=== PATIENT | male | born 1995 | race African-American/Black ===

== ENCOUNTER 2016-11-23 09:25 | Observation (INO) | payer BC ==
--- NOTE | ~2016-11-23 | DS ---
Discharge Summary [facility] [address] [place]. [address] NAME: ALPA VALIENTE JR : 95 STATUS : DIS [place] PAT#: [id number] AGE: 21 ADM/REG DATE : 11/23/16 MR#: [id number] REPORT SERV DATE: 11/25/16 DICTATED BY: FREDY CASTILLO II DATE: 11/24/16 REPORT STATUS : Draft TRANSCRIBED BY: KANIKA DATE: 11/24/16 ADMISSION DATE: 11/23/2016 DISCHARGE DATE: 11/24/2016 DISCHARGE DIAGNOSES: 1. Uncontrolled diabetes mellitus type 1 with hyperglycemia. 2. Nausea and vomiting secondary to the above. 3. Hypokalemia. 4. Dehydration. BRIEF HISTORY OF PRESENT ILLNESS: The patient is a 21-year-old male with the above history, who presented to [facility] due to worsening nausea and vomiting in the setting of hyperglycemia, type 1 diabetes with likely impending DKA. For detailed history and physical examination, please see my note from 11/23/2016. HOSPITAL COURSE: On admission, the patient's bicarbonate was only 23 with 20 ketones in his urine, but negative acetone. The patient's blood sugar was around 320 on admission and his creatinine mildly elevated at 1.25. There was no evidence of infection and the patient was given aggressive IV fluid hydration and insulin. His symptoms of nausea and vomiting quickly resolved, and he was able to resume his normal diet. The patient notes his blood sugar has been fairly wildly uncontrolled with blood sugars in the 300s to 500s. His A1c was 15. He admits to accidentally skipping doses of his insulin. The patient has been counseled in the hospital about being compliant with his regimen and diet and has verbalized understanding. Given it is the weekend, there was no informatics educator on, so we will try and arrange some outpatient diabetes education and the patient will follow with his PCP, Dr. Rock. DISCHARGE MEDICATIONS: 1. Lantus 40 units subcutaneously q.h.s. 2. Lispro t.i.d. a.c. per correction scale. DISCHARGE INSTRUCTIONS: The patient will follow up with Dr. Lynn Rock this week. FELIZ/KANIKA Fredy Castillo II, MD / [id number] CC: MD LESLIE Dee II, WINIFRED
--- NOTE | ~2016-11-23 | HP ---
History And Physical [place] [address] [facility] [place]. [address] NAME: ALPA VALIENTE JR : 95 STATUS : ADM [place] PAT#: [id number] AGE: 21 ADM/REG DATE : 11/23/16 MR#: [id number] REPORT SERV DATE: 11/23/16 DICTATED BY: FREDY PACE II DATE: 11/23/16 REPORT STATUS : Draft TRANSCRIBED BY: MODL DATE: 11/23/16 DATE OF ADMISSION: 11/23/2016 CHIEF COMPLAINT: Nausea and vomiting. HISTORY OF PRESENT ILLNESS: The patient is a 21-year-old male with a history of uncontrolled diabetes mellitus type 1, who presented to [facility] due to nausea for the past few days, now having vomiting today. He was found to be hyperglycemic with a blood sugar of 324. CO2 only mildly low at 23 and acetone negative. ER requesting admission for treatment of concern for possible impending DKA. Otherwise, the patient denies any fevers, chills, shortness of breath, chest pain, or dysuria. Denies any diarrhea or abdominal pain. REVIEW OF SYSTEMS: A 10-point review of systems is otherwise negative except for HPI. PAST MEDICAL HISTORY: Diabetes mellitus type 1, previously uncontrolled, reported recent A1c of 11. PAST SURGICAL HISTORY: None. SOCIAL HISTORY: The patient denies any tobacco use, but does smoke marijuana. Denies any significant alcohol or other drug use. FAMILY HISTORY: Type 1 diabetics in a few uncles and cousins. Father has COPD. HOME MEDICATIONS: Lantus 40 units subcu q.h.s. and NovoLog per sliding scale. PHYSICAL EXAMINATION: VITAL SIGNS: Blood pressure 140/89, temperature 97.3, pulse 89, respirations 14, and O2 saturation 100% on room air. GENERAL: The patient is alert and oriented x3, in no acute distress. NECK: Supple. Nontender. No lymphadenopathy or thyromegaly. HEENT: Moist mucous membranes. Pupils are equal, round, and reactive to light. Conjunctive clear. RESPIRATORY: Lungs are clear to auscultation bilaterally. No wheezes, rhonchi, or rales. Nonlabored breathing. CARDIOVASCULAR: Regular rate and rhythm. No murmurs, rubs, or gallops. ABDOMEN: Soft, nontender, nondistended. Normoactive bowel sounds. EXTREMITIES: No cyanosis, clubbing, or edema. SKIN: No lesions, rashes, or wounds. NEUROLOGIC: No focal deficits. LABORATORY DATA: WBC 7.6, hemoglobin 14.9, platelets 190. Sodium 138, potassium 4.4, chloride 105, CO2 of 23, BUN 9, creatinine 1.25, glucose 324. Total protein 9.6, albumin 4.4, globulin 5.2, lipase 87. Acetone negative. LFTs normal. History And Physical [address] [address] NAME: ALPA VALIENTE JR : 95 STATUS : ADM [place] PAT#: [id number] AGE: 21 ADM/REG DATE : 11/23/16 MR#: [id number] REPORT SERV DATE: 11/23/16 DICTATED BY: FREDY PACE II DATE: 11/23/16 REPORT STATUS : Draft TRANSCRIBED BY: KANIKA DATE: 11/23/16 Urine drug screen: Positive for marijuana. Urinalysis: Unremarkable. ASSESSMENT AND PLAN: The patient is a 21-year-old male with uncontrolled diabetes mellitus type 1 with hyperglycemia and concern for impending diabetic ketoacidosis. Acetone negative. He had 20 ketones on his UA, so we will treat with aggressive IV fluid hydration and give him a dose of IV insulin and start subcu NovoLog and Levemir. We will recheck labs in four hours and reassess if the patient needs to go on a drip or not. We will check A1c and provide supportive care. The patient is full code. FELIZ/KANIKA Fredy Pace II, MD / [id number] CC: Fredy Pace II, MD
[~2016-11-23 09:25] MED LIST: HUMALOG SC; LANTUS SC
[2016-11-23 10:32] LABS: ASCORBIC ACID (UR NOT ORDER) NEG (NEG); BILIRUBIN, URINE NEGATIVE (NEG); ER URINALYSIS TAT 0 Hrs 08 Mins; KETONE, URINE 20 MG/DL (NEG); LEUKOCYTE ESTERASE(NOT OR NEG (NEG); NITRITE (URINE) NEG (NEG); WBC (NOT ORDERED) (RFLEX) 1 (0-5)
[2016-11-23 10:54] LABS: AMPHETAMINES (NOT ORD) NEG (NEG); BARBITURATES (NOT ORDERED NEG (NEG); BENZODIAZEPINES (NOT ORD) NEG (NEG); CANNABINOIDS (THC) POS (NEG); COCAINE (NOT ORDERED) NEG (NEG); OPIATES NEG (NEG); PHENCYCLIDINE(PCP) NEG (NEG); TRICYCLICS NEG (NEG)
[2016-11-23 11:12] LABS: BASOPHILS 0.3 %; BASOPHILS ABSOLUTE 0.02 10/3/uL (0.0-0.16); EOSINOPHILS 0.1 %; EOSINOPHILS ABSOLUTE 0.01 10/3/uL (0.0-0.53); HEMATOCRIT 42.9 % (40.0-51.0); HEMOGLOBIN 14.9 g/dL (13.6-17.8); IMMATURE GRANULOCYTES 0.1 %; IMMATURE GRANULOCYTES ABSOLUTE 0.01 10/3/uL (0.0-0.11); LYMPHOCYTES 15.6 %; LYMPHOCYTES ABSOLUTE 1.18 10/3/uL (0.67-4.30); MEAN CORPUS HGB CONC 34.7 g/dL (32.0-36.0); MEAN CORPUSCULAR HEMOGLOB 28.8 pg (26.0-34.0); MEAN CORPUSCULAR VOLUME 82.8 fL (80-100); MEAN PLATELET VOLUME 10.1 fL (9.2-13.0); MONOCYTES 4.4 %; MONOCYTES ABSOLUTE 0.33 10/3/uL (0.21-1.20); NEUTROPHILS 79.5 %; NEUTROPHILS ABSOLUTE 6.01 10/3/uL (2.02-8.40); PLATELET COUNT 190 10/3/uL (150-400); RBC DISTRIBUTION WIDTH 12.7 % (12.0-16.0); RED CELL COUNT 5.18 10/6/uL (4.7-6.1); WHITE BLOOD CELLS 7.6 10/3/uL (4.5-10.5)
[2016-11-23 11:15] LABS: MANUAL DIFF NO %
[2016-11-23 11:26] LABS: A/G RATIO 0.8 (0.7-1.9); ALBUMIN 4.4 G/DL (3.5-5.0); BUN (BLOOD UREA NITROGEN) 9 MG/DL (6-23); CHLORIDE, SERUM 105 MMOL/L (96-112); CO2 (CARBON DIOXIDE) 23 MMOL/L (24-34); CREATININE 1.25 MG/DL (0.70-1.30); GFR AFRICAN AMERICAN 95 ML/MIN (>=60); GFR NON AFRICAN AMERICAN 82 ML/MIN (>=60); GLOBULIN 5.2 G/DL (2.5-4.1); SGPT(ALT) 22 U/L (5-65); SODIUM, SERUM 138 MMOL/L (135-148); TOTAL BILIRUBIN 0.6 MG/DL (0-1.2); TOTAL PROTEIN 9.6 G/DL (6.0-8.5)
[2016-11-23 11:27] LABS: ALKALINE PHOSPHATASE 112 U/L (45-117); CALCIUM, SERUM 9.7 MG/DL (8.5-10.4); GLUCOSE, SERUM 324 MG/DL (60-99); POTASSIUM, SERUM 4.4 MMOL/L (3.5-5.3); SGOT(AST) 25 U/L (5-40)
[2016-11-23 11:30] LABS: ACETONE NEG
[2016-11-23] MEDS ORDERED: LANTUS SC (11:49)
[2016-11-23] MEDS ORDERED: HUMALOG SC (11:49)
[2016-11-23 13:47] LABS: BE (BASE EXCESS) -4.1 MEQ/L (0 +/- 2.5); CARBOXYHEMOGLOBIN 1.7 % (0-3); HCO3 (ACTUAL BICARBONATE) 19.1 MEQ/L (23-27); HEMOBLOGIN CONTENT 16.1 G/DL (14-18); INSTRUMENT SERIAL # 8087; METHEMOGLOBIN 0.5 % (0-3); PCO2 (CO2 TENSION) 31 MMHG (35-45); PO2 (O2 TENSION) 24 MMHG (79-93); SAMPLE Venous; pH 7.41 (7.37-7.43)
[2016-11-23 14:16] LABS: BUN (BLOOD UREA NITROGEN) 10 MG/DL (6-23); CHLORIDE, SERUM 110 MMOL/L (96-112); CO2 (CARBON DIOXIDE) 25 MMOL/L (24-34); GFR AFRICAN AMERICAN 111 ML/MIN (>=60); GFR NON AFRICAN AMERICAN 95 ML/MIN (>=60); GLOBULIN 4.2 G/DL (2.5-4.1); SGOT(AST) 9 U/L (5-40); SGPT(ALT) 18 U/L (5-65); SODIUM, SERUM 142 MMOL/L (135-148); TOTAL BILIRUBIN 0.6 MG/DL (0-1.2); TOTAL PROTEIN 8.2 G/DL (6.0-8.5)
[2016-11-23 14:24] LABS: ALKALINE PHOSPHATASE 91 U/L (45-117); GLUCOSE, SERUM 232 MG/DL (60-99); POTASSIUM, SERUM 3.3 MMOL/L (3.5-5.3)
[2016-11-23 15:40] LABS: BUN (BLOOD UREA NITROGEN) 9 MG/DL (6-23); CALCIUM, SERUM 8.7 MG/DL (8.5-10.4); CHLORIDE, SERUM 110 MMOL/L (96-112); CO2 (CARBON DIOXIDE) 24 MMOL/L (24-34); CREATININE 1.08 MG/DL (0.70-1.30); GFR AFRICAN AMERICAN 113 ML/MIN (>=60); GFR NON AFRICAN AMERICAN 98 ML/MIN (>=60); GLUCOSE, SERUM 193 MG/DL (60-99); POTASSIUM, SERUM 3.4 MMOL/L (3.5-5.3); SODIUM, SERUM 142 MMOL/L (135-148)
[2016-11-24 08:00] LABS: BUN (BLOOD UREA NITROGEN) 9 MG/DL (6-23); CALCIUM, SERUM 7.8 MG/DL (8.5-10.4); CHLORIDE, SERUM 113 MMOL/L (96-112); CO2 (CARBON DIOXIDE) 23 MMOL/L (24-34); CREATININE 0.95 MG/DL (0.70-1.30); GFR AFRICAN AMERICAN 132 ML/MIN (>=60); GFR NON AFRICAN AMERICAN 114 ML/MIN (>=60); POTASSIUM, SERUM 3.1 MMOL/L (3.5-5.3); SODIUM, SERUM 144 MMOL/L (135-148)
[2016-11-24 08:02] LABS: GLUCOSE, SERUM 53 MG/DL (60-99)
[2016-11-25] MEDS ORDERED: ADVIL PO (08:23)
[2017-03-13] MEDS ORDERED: HUMALOGPEN SC (17:29)
[2017-03-13] MEDS ORDERED: LANTUSCART SC (17:29)
[2017-03-13] MEDS ORDERED: ADVIL PO (17:31)
[2017-03-17] MEDS ORDERED: LANTUS SC (08:42)
[2017-03-17] MEDS ORDERED: HUMALOG SC (08:42)
[2017-03-19] MEDS ORDERED: HUMALOGPEN SQ (10:23)
== END 2016-11-24 16:07 | disposition home or self-care (01) ==
LOC: ER 09:25 → CDU1 12:18
PROVIDERS: Emergency Medicine; Internal Medicine
DX: E10.65 Type 1 diabetes mellitus with hyperglycemia (principal); R11.2 Nausea with vomiting, unspecified; E87.6 Hypokalemia; E86.0 Dehydration; Z83.3 Family history of diabetes mellitus; Z82.5 Family history of asthma and other chronic lower respiratory diseases; Z79.899 Other long term (current) drug therapy; Z79.4 Long term (current) use of insulin
CPT/HCPCS: 80048; 80053; 80305; 81001; 82009; 82805; 82962; 83036; 83690; 85025; 96372; 96374; 96375; 96376; 99284; A9270-GY; G0378; J1170; J2405; J2550

== ENCOUNTER 2016-11-25 07:20 | Inpatient (IN) | payer BC ==
--- NOTE | ~2016-11-25 | DS ---
Discharge Summary [facility] [address] [place]. [address] NAME: ALPA VALIENTE JR : 95 STATUS : DIS Pon[place] PAT#: [id number] AGE: 21 ADM/REG DATE : 11/25/16 MR#: [id number] REPORT SERV DATE: 11/28/16 DICTATED BY: JR. ROSAS WILLIAM JOHN DATE: 11/27/16 REPORT STATUS : Draft TRANSCRIBED BY: KANIKA DATE: 11/27/16 ADMISSION DATE: 11/25/2016 DISCHARGE DATE: 11/27/2016 DISCHARGE DIAGNOSES: 1. Abdominal pain - resolved. 2. Diabetes mellitus type 1 with a hemoglobin A1c of 15 and impending diabetic ketoacidosis. 3. Hypokalemia. OPERATIONS/PROCEDURES AND TREATMENTS: None. DISCHARGE MEDICATIONS: Include Lantus insulin 40 units at bedtime, premeal Humalog 8 units before meals holding for finger blood sugar less than 100, and NovoLog sliding scale level 2. HOSPITAL COURSE: The patient was a 21-year-old male, just discharged on 11/24/2016 who returned to the hospital on 11/25/2016 with abdominal pain, nausea, vomiting. Lab analysis showed the patient had a blood sugar of 340 with low bicarbonate at 23, although his anion gap was only 11. The patient's exam was otherwise unremarkable. The patient was admitted to the Clinical Decision Unit. He was placed on an insulin drip and IV fluid. The patient quickly normalized. He was transitioned to a basal premeal bolus regimen on hospital day #2 and is discharged on hospital day #3 on the above diabetic regimen. He did receive diabetic education as far as extensive counseling from mi, perinatal educator, case management. The patient understands and voices willingness to participate. As to his hypokalemia, this was replaced per protocol. The patient will be discharged home today 11/27/2016 in good condition. We will follow up with his primary care provider, Sheba Rock. For discharge exam and laboratory, please see daily progress note. DISCHARGE DIET: ADA. ACTIVITY: As tolerated. FOLLOWUP ISSUES: Recommend refining the diabetic regimen and routine diabetic care. SARAH/KANIKA Emmett Rosas Jr, MD Discharge Summary [place] [address] [place] [address] NAME: ALPA VALIENTE : 95 STATUS : DIS Pon[place] PAT#: [id number] AGE: 21 ADM/REG DATE : 11/25/16 MR#: [id number] REPORT SERV DATE: 11/28/16 DICTATED BY: JR. ROSAS WILLIAM JOHN DATE: 11/27/16 REPORT STATUS : Draft TRANSCRIBED BY: KANIKA DATE: 11/27/16 / [id number] CC: Emmett Rosas Jr, MD Winifred Dunbar-Davies
--- NOTE | ~2016-11-25 | HP ---
History And Physical [place] [id number] [facility] [place]. [address] NAME: ALPA VALIENTE JR : 95 STATUS : ADM [place] PAT#: [id number] AGE: 21 ADM/REG DATE : 11/25/16 MR#: [id number] REPORT SERV DATE: 11/25/16 DICTATED BY: CONNOR MERLOS DATE: 11/25/16 REPORT STATUS : Draft TRANSCRIBED BY: MODL DATE: 11/25/16 DATE OF ADMISSION: 11/25/2016 ATTENDING PHYSICIAN: Emmett Rosas Jr, MD. EXAMINING PHYSICIAN: Connor Merlos M.D. REASON FOR ADMISSION: Intractable nausea, vomiting, type 1 diabetes, impending DKA. HISTORY: A 21-year-old male, who was just discharged on 11/24/2016, by Dr. Pace. Has had uncontrolled diabetes type 1, his hemoglobin A1c was 15. He claims he is not out of insulin; however, he responded very quickly to insulin during the prior hospitalization and resolution of nausea and vomiting. His CO2 was 23 as it is now. His serum ketones were negative. His urinalysis has not been obtained. PAST MEDICAL HISTORY: Diabetes type 1, has started at age 13. His family physician is Dr. Burt Rock. He complains mostly of abdominal pain in the epigastrium with vomiting. The patient is in extremis of vomiting at this time. SOCIAL HISTORY: He is not . Lives at home with his mother and father. He does smoke marijuana, he indicates this is daily. No alcohol or other drug use. No narcotics. FAMILY HISTORY: Diabetes type 1. Father has COPD. HOME MEDICATIONS: Lantus 40 units subcu daily; NovoLog by sliding scale; and ibuprofen for pain. REVIEW OF SYSTEMS: Mostly abdominal pain, epigastric pain, wants pain medicine. He is shaking his legs with pain. Somewhat uncooperative with history. The remainder of the review of systems answered by grunting is negative. PHYSICAL EXAMINATION: VITAL SIGNS: His heart rate is 80, respiratory rate 22, and his initial blood pressure is 122/70. GENERAL: male in obvious distress. HEENT: EOMI. Sclerae clear. Conjunctivae pink and uncooperative with the examination. NECK: No bruit without any JVD. CHEST: Clear to A and P. HEART: Regular S1, S2 without murmur, gallop, or click. ABDOMEN: Soft. There is no point tenderness. Bowel sounds are slow. EXTREMITIES: Showed no edema. Distal pulses intact, dorsalis pedis and posterior tibial. NEUROLOGIC: Tongue is dry. History And Physical [address] [address] NAME: ALPA VALIENTE JR : 95 STATUS : ADM [place] PAT#: [id number] AGE: 21 ADM/REG DATE : 11/25/16 MR#: [id number] REPORT SERV DATE: 11/25/16 DICTATED BY: CONNOR MERLOS DATE: 11/25/16 REPORT STATUS : Draft TRANSCRIBED BY: KANIKA DATE: 11/25/16 LABORATORY DATA: His carbon dioxide was 32. Sodium 137, potassium 3.8, chloride is 103, creatinine 1.22, BUN 10, calcium 9.5, his globulin was 4.4. Liver tests normal. Serum acetone negative. His white count was 6.1, hemoglobin 14.8, hematocrit 41.9, and platelets 223,000. ASSESSMENT: 1. Abdominal pain, epigastric. We will check lipase and amylase on blood in the lab. 2. Diabetes type 1 since age 13. 3. Impending diabetic ketoacidosis. Mild decrease in the PaCO2. Ketones are negative in the serum. We will check urine. No urinalysis has been obtained yet for vomiting. Check lipase and amylase as well. PLAN: I am going to treat his diabetic ketoacidosis as he did have a very good response over the weekend. We will start IV insulin drip as he is having vomiting now and convert to D5 half-normal saline once the blood sugar is less than 180. Rapidly convert to p.o. and subcu if he responds rapidly this weekend and check lipase and amylase. Also the diabetes education will see the patient regarding risk for repeat DKA. He claims that he is not out of insulin. He has no fever or chills. No signs or source of infection, and he has been eating adequately at that time. He began having abdominal pain around 2 a.m. this morning. MADDIE/KANIKA Connor Merlos M.D. / [id number] CC: Emmett Rosas Jr, MD James E Gilbert II, MD
[2016-11-25 07:04] LABS: BASOPHILS 0.3 %; BASOPHILS ABSOLUTE 0.02 10/3/uL (0.0-0.16); EOSINOPHILS 0.8 %; EOSINOPHILS ABSOLUTE 0.05 10/3/uL (0.0-0.53); HEMATOCRIT 41.9 % (40.0-51.0); HEMOGLOBIN 14.8 g/dL (13.6-17.8); LYMPHOCYTES 34.3 %; LYMPHOCYTES ABSOLUTE 2.08 10/3/uL (0.67-4.30); MEAN CORPUS HGB CONC 35.3 g/dL (32.0-36.0); MEAN PLATELET VOLUME 10.7 fL (9.2-13.0); MONOCYTES 7.4 %; MONOCYTES ABSOLUTE 0.45 10/3/uL (0.21-1.20); NEUTROPHILS 57.2 %; NEUTROPHILS ABSOLUTE 3.47 10/3/uL (2.02-8.40); PLATELET COUNT 223 10/3/uL (150-400); RBC DISTRIBUTION WIDTH 12.8 % (12.0-16.0); RED CELL COUNT 5.11 10/6/uL (4.7-6.1); WHITE BLOOD CELLS 6.1 10/3/uL (4.5-10.5)
[2016-11-25 07:05] LABS: MANUAL DIFF NO %
[2016-11-25 07:19] LABS: A/G RATIO 0.9 (0.7-1.9); ALKALINE PHOSPHATASE 84 U/L (45-117); BUN (BLOOD UREA NITROGEN) 10 MG/DL (6-23); CALCIUM, SERUM 9.5 MG/DL (8.5-10.4); CHLORIDE, SERUM 103 MMOL/L (96-112); CO2 (CARBON DIOXIDE) 23 MMOL/L (24-34); CREATININE 1.22 MG/DL (0.70-1.30); GFR AFRICAN AMERICAN 98 ML/MIN (>=60); GFR NON AFRICAN AMERICAN 84 ML/MIN (>=60); GLOBULIN 4.4 G/DL (2.5-4.1); GLUCOSE, SERUM 340 MG/DL (60-99); SGPT(ALT) 21 U/L (5-65); SODIUM, SERUM 137 MMOL/L (135-148); TOTAL BILIRUBIN 0.5 MG/DL (0-1.2); TOTAL PROTEIN 8.4 G/DL (6.0-8.5)
[2016-11-25 07:20] LABS: POTASSIUM, SERUM 3.8 MMOL/L (3.5-5.3); SGOT(AST) 28 U/L (5-40)
[2016-11-25 07:34] LABS: ACETONE NEG
[2016-11-25] MEDS ORDERED: ADVIL PO (08:23)
[2016-11-25 10:24] LABS: PHOSPHORUS, SERUM 1.4 MG/DL (2.5-4.5)
[2016-11-25 14:52] LABS: BUN (BLOOD UREA NITROGEN) 9 MG/DL (6-23); CALCIUM, SERUM 9.2 MG/DL (8.5-10.4); CHLORIDE, SERUM 105 MMOL/L (96-112); CO2 (CARBON DIOXIDE) 23 MMOL/L (24-34); CREATININE 0.96 MG/DL (0.70-1.30); GFR AFRICAN AMERICAN 130 ML/MIN (>=60); GFR NON AFRICAN AMERICAN 113 ML/MIN (>=60); POTASSIUM, SERUM 3.2 MMOL/L (3.5-5.3); SODIUM, SERUM 139 MMOL/L (135-148)
[2016-11-25 14:53] LABS: GLUCOSE, SERUM 180 MG/DL (60-99)
[2016-11-27 04:13] LABS: BUN (BLOOD UREA NITROGEN) 8 MG/DL (6-23); CALCIUM, SERUM 8.6 MG/DL (8.5-10.4); CHLORIDE, SERUM 101 MMOL/L (96-112); CO2 (CARBON DIOXIDE) 27 MMOL/L (24-34); CREATININE 1.02 MG/DL (0.70-1.30); GFR AFRICAN AMERICAN 121 ML/MIN (>=60); GFR NON AFRICAN AMERICAN 105 ML/MIN (>=60); GLUCOSE, SERUM 118 MG/DL (60-99); SODIUM, SERUM 137 MMOL/L (135-148)
[2016-11-27] MEDS ORDERED: HUMALOGPEN SC (09:02)
[2016-11-27] MEDS ORDERED: HUMALOG SC (09:03)
[2017-03-13] MEDS ORDERED: LANTUSCART SC (17:29)
[2017-03-13] MEDS ORDERED: HUMALOGPEN SC (17:29)
[2017-03-13] MEDS ORDERED: ADVIL PO (17:31)
[2017-03-17] MEDS ORDERED: HUMALOG SC (08:42)
[2017-03-17] MEDS ORDERED: LANTUS SC (08:42)
[2017-03-19] MEDS ORDERED: HUMALOGPEN SQ (10:23)
== END 2016-11-27 09:30 | disposition home or self-care (01) | DRG 639 ==
LOC: ER 07:20 → CDU1 08:02
PROVIDERS: Emergency Medicine; Internal Medicine
DX: E10.65 Type 1 diabetes mellitus with hyperglycemia (principal); E86.0 Dehydration; E87.6 Hypokalemia; R10.13 Epigastric pain; R11.2 Nausea with vomiting, unspecified; Z83.3 Family history of diabetes mellitus; Z79.4 Long term (current) use of insulin; Z82.5 Family history of asthma and other chronic lower respiratory diseases; Z79.899 Other long term (current) drug therapy
CPT/HCPCS: 80048; 80053; 80305; 81001; 82009; 82150; 82805; 82962; 83036; 83690; 83735; 84100; 84132; 85025; 96365; 96366; 96372; 96374; 96375; 96376; 99284; 99285; A9270-GY; C9113; G0378; J1170; J2405; J2550

== ENCOUNTER 2016-12-31 17:00 | Emergency (ER) | payer BC ==
[2016-12-31 12:41] LABS: BASOPHILS 0.4 %; BASOPHILS ABSOLUTE 0.03 10/3/uL (0.0-0.16); EOSINOPHILS 0 %; HEMOGLOBIN 14.9 g/dL (13.6-17.8); IMMATURE GRANULOCYTES 0.1 %; IMMATURE GRANULOCYTES ABSOLUTE 0.01 10/3/uL (0.0-0.11); LYMPHOCYTES ABSOLUTE 1.26 10/3/uL (0.67-4.30); MEAN CORPUS HGB CONC 35.5 g/dL (32.0-36.0); MEAN CORPUSCULAR HEMOGLOB 28.9 pg (26.0-34.0); MEAN CORPUSCULAR VOLUME 81.6 fL (80-100); MEAN PLATELET VOLUME 9.9 fL (9.2-13.0); MONOCYTES 2.8 %; MONOCYTES ABSOLUTE 0.21 10/3/uL (0.21-1.20); NEUTROPHILS 79.7 %; NEUTROPHILS ABSOLUTE 5.92 10/3/uL (2.02-8.40); PLATELET COUNT 250 10/3/uL (150-400); RBC DISTRIBUTION WIDTH 12.5 % (12.0-16.0); RED CELL COUNT 5.15 10/6/uL (4.7-6.1); WHITE BLOOD CELLS 7.4 10/3/uL (4.5-10.5)
[2016-12-31 12:42] LABS: MANUAL DIFF NO %
[2016-12-31 13:00] LABS: A/G RATIO 0.9 (0.7-1.9); ALBUMIN 4.2 G/DL (3.5-5.0); ALKALINE PHOSPHATASE 94 U/L (45-117); CHLORIDE, SERUM 99 MMOL/L (96-112); GFR AFRICAN AMERICAN 124 ML/MIN (>=60); GFR NON AFRICAN AMERICAN 107 ML/MIN (>=60); GLOBULIN 4.7 G/DL (2.5-4.1); POTASSIUM, SERUM 3.2 MMOL/L (3.5-5.3); SGOT(AST) 16 U/L (5-40); SGPT(ALT) 20 U/L (5-65); SODIUM, SERUM 134 MMOL/L (135-148); TOTAL BILIRUBIN 0.6 MG/DL (0-1.2); TOTAL PROTEIN 8.9 G/DL (6.0-8.5)
[2016-12-31 13:01] LABS: BUN (BLOOD UREA NITROGEN) 13 MG/DL (6-23); CALCIUM, SERUM 9.7 MG/DL (8.5-10.4); CO2 (CARBON DIOXIDE) 20 MMOL/L (24-34); GLUCOSE, SERUM 255 MG/DL (60-99)
[2016-12-31 16:45] LABS: WBC (NOT ORDERED) (RFLEX) 0 (0-5)
[2016-12-31 16:56] LABS: ASCORBIC ACID (UR NOT ORDER) NEG (NEG); BILIRUBIN, URINE NEGATIVE (NEG); ER URINALYSIS TAT 0 Hrs 14 Mins; KETONE, URINE 80 MG/DL (NEG); LEUKOCYTE ESTERASE(NOT OR NEG (NEG); NITRITE (URINE) NEG (NEG)
[~2016-12-31 17:00] MED LIST changes: +ADVIL PO; +HUMALOGPEN SC
[2017-03-13] MEDS ORDERED: LANTUSCART SC (17:29)
[2017-03-13] MEDS ORDERED: HUMALOGPEN SC (17:29)
[2017-03-13] MEDS ORDERED: ADVIL PO (17:31)
[2017-03-17] MEDS ORDERED: LANTUS SC (08:42)
[2017-03-17] MEDS ORDERED: HUMALOG SC (08:42)
[2017-03-19] MEDS ORDERED: HUMALOGPEN SQ (10:23)
== END 2016-12-31 21:18 | disposition home or self-care (01) ==
LOC: ER 17:00
PROVIDERS: Emergency Medicine
DX: R91.1 Solitary pulmonary nodule (principal); J44.9 Chronic obstructive pulmonary disease, unspecified; I25.10 Atherosclerotic heart disease of native coronary artery without angina pectoris; I10 Essential (primary) hypertension; I48.91 Unspecified atrial fibrillation; F41.9 Anxiety disorder, unspecified; M19.90 Unspecified osteoarthritis, unspecified site; Z87.442 Personal history of urinary calculi; Z90.49 Acquired absence of other specified parts of digestive tract; Z86.73 Personal history of transient ischemic attack (TIA), and cerebral infarction without residual deficits; Z79.4 Long term (current) use of insulin
CPT/HCPCS: 74177; 80053; 81001; 82962; 83690; 85025; 87040; 96374; 99284; A9270-GY; J1170; J2405; Q9967

== ENCOUNTER 2017-01-02 11:42 | Inpatient (IN) | payer BC ==
--- NOTE | ~2017-01-02 | HP ---
History And Physical [facility] [address] [place]. [address] NAME: ALPA VALIENTE JR : 95 STATUS : ADM IN [facility]#: [id number] AGE: 21 ADM/REG DATE : 01/02/17 MR#: [id number] REPORT SERV DATE: 01/02/17 DICTATED BY: JAYE THOMPSON DATE: 01/02/17 REPORT STATUS : Draft TRANSCRIBED BY: MODePrry DATE: 01/02/17 DATE OF ADMISSION: 01/02/2017 CHIEF COMPLAINT: Intractable nausea, vomiting, and weakness. HISTORY OF PRESENT ILLNESS: This is a 21-year-old gentleman with a past medical history significant for diabetes type 1 since childhood, prior history of DKAs, uncontrolled, somewhat noncompliant according to the patient, presenting to [facility] with complaints of intractable nausea and vomiting, inability to keep anything down for couple of days. He came two days ago to emergency room at [facility] for somewhat the same complain. At that time, he underwent on 12/31/[address] of the abdomen and pelvis, which essentially has been normal. His blood cultures at that time have been negative as well as his UA. However, despite he says the fact that he was continue to take his Lantus and Humalog, he has been unable to keep anything down with intractable nausea and vomiting. The patient denies any fever or chills. No shortness of breath. No chest pain. No palpitations. No PND. No orthopnea. No diarrhea. No constipation. No increased urinary frequency or urgency. No other complaints. The patient has been evaluated in the emergency room and the Hospitalist Service has been asked for admission, further evaluation, and treatment. PAST MEDICAL HISTORY: Diabetes type 1, prior uncontrolled. PAST SURGICAL HISTORY: None. SOCIAL HISTORY: He denies tobacco abuse, but he does smoke marijuana. No alcohol. No IV drugs. FAMILY HISTORY: COPD and diabetes type 1. ALLERGIES: HE DOES NOT HAVE ANY DRUG ALLERGIES. MEDICATIONS: At home include Lantus 40 units at bedtime and Humalog before meals. REVIEW OF SYSTEMS: A 14-point review of systems has been obtained and pertinent positive has been listed into the history of present illness. Otherwise, negative except those underlying above. PHYSICAL EXAMINATION: VITAL SIGNS: The patient is afebrile. Blood pressure 122/72, heart rate 113, respiratory rate 16, and saturating 99% on room air. GENERAL: He is a very pleasant, dry-appearing gentleman, very weak, in no acute distress. He is alert and oriented x3. He is nonfocal. He follows all his commands appropriately. HEENT: Pupils are equal, round, reactive to light. Extraocular movements intact. No JVD. No lymphadenopathy. No thyromegaly appreciated. CHEST: Bilateral air entry. Clear anteroposterior. No wheezes, crackles, or rhonchi appreciated. History And Physical [address] [address] NAME: ALPA VALIENTE JR : 95 STATUS : ADM IN [facility]#: [id number] AGE: 21 ADM/REG DATE : 01/02/17 MR#: [id number] REPORT SERV DATE: 01/02/17 DICTATED BY: JAYE THOMPSON DATE: 01/02/17 REPORT STATUS : Draft TRANSCRIBED BY: KANIKA DATE: 01/02/17 CARDIOVASCULAR: He is regular rate and rhythm. Somewhat tachycardic. S1-S2 positive. No S3, no S4. No murmurs, rubs, or gallops appreciated. ABDOMEN: Soft, nontender. No guarding. No rebound. EXTREMITIES: No clubbing, cyanosis, or edema. NEUROLOGIC: He is alert and oriented x3. He is nonfocal. He follows all his commands appropriately. LABORATORY DATA: Labs from today include ABG 7.35, 30, and 93 on 21% FiO2. His sodium is 127, potassium 3.6, chloride 91, CO2 18, BUN 21, creatinine 1.49, glucose is 367. His total protein is 9.9, albumin 4.6, globulin 5.3, total bilirubin is 0.7, alkaline phosphatase 100, ALT 28, AST 14. Lipase is 65. His white count 18.3, hemoglobin 16, hematocrit 45, platelets are 253. His UA from 12/31/2016 has been negative. His blood cultures from 12/31/2016 has been negative. There is a CT scan of the abdomen and pelvis without contrast that has shown on 12/31/2016. There is no acute abdominal or pelvic pathology. No other abnormalities. ASSESSMENT: This is a 21-year-old gentleman with intractable nausea, vomiting. 1. Diabetic ketoacidosis in a patient with diabetes type 1, reported uncontrolled in the past. 2. Hyponatremia secondary to above. 3. Mild acute kidney injury. 4. Leukocytosis, possibly reactive. PLAN: The patient is going to be kept n.p.o. We are going to place him on vigorous IV fluids. We are going to place him on insulin drip as the patient has nausea and vomiting. We are going to change the IV fluids to D5 half NS when the blood sugar is less than 200. Adjust the insulin drip to keep the blood sugars between 150-180. We are going to do BNP, Mag, and phosphorus every six hours for today and replace the electrolytes as needed. We are going to check a chest x-ray, blood cultures, UA, and urine cultures currently. We are going to place him on PPI IV, provide the symptomatic treatment with nausea and pain control as well as GI and DVT prophylaxis. Once the patient will be able to tolerate p.o. intake, he will be starting with diet. We will provide reasonable pain and nausea control as well as GI and DVT prophylaxis. That has been discussed extensively with the patient. All the questions have been answered in full. Further workup and recommendation pending above. It is worthwhile to note that the patient is going to be followed by Hospitalist Service. CF/ANALISAL Jaye Thompson M.D. / [id number] CC: History And Physical [address] [address] NAME: ALPA VALEINTE JR : 95 STATUS : ADM IN PAT#: [id number] AGE: 21 ADM/REG DATE : 01/02/17 MR#: [id number] REPORT SERV DATE: 01/02/17 DICTATED BY: JAYE THOMPSON DATE: 01/02/17 REPORT STATUS : Draft TRANSCRIBED BY: MODL DATE: 01/02/17 Larry Hollingsworth M.D. RAVINDER NELSON
--- NOTE | ~2017-01-02 | DS ---
Discharge Summary [facility] [address] [place]. [address] NAME: ALPA VALIENTE JR : 95 STATUS : DIS IN PAT#: [id number] AGE: 21 ADM/REG DATE : 01/02/17 MR#: [id number] REPORT SERV DATE: 01/05/17 DICTATED BY: CONNOR FALK DATE: 01/04/17 REPORT STATUS : Draft TRANSCRIBED BY: MODL DATE: 01/04/17 ADMISSION DATE: 01/02/2017 DISCHARGE DATE: 01/04/2017 DISCHARGE DIAGNOSES: 1. Diabetic ketoacidosis. 2. Uncontrolled type 1 diabetes acute and chronic with hemoglobin A1c of 13.5. 3. Poor compliance. 4. Electrolyte abnormalities treated. OPERATIONS AND PROCEDURES: None. PRESENT ILLNESS: This is a 21-year-old male who was triaged in the emergency room on 01/02/2017 at 1008 hours complaining of diabetes and nausea. Admission vital signs: Blood pressure 122/72, temp 98.8, pulse 113, respirations 16, and O2 sat 99%. His evaluation in the emergency room included a blood sugar at triage which was 358. His electrolytes demonstrated a sodium of 127, bicarbonate of 18, and a creatinine of 1.49. He had an anion gap of 19. He was thought to have diabetic ketoacidosis. He was referred to the Hospitalist Service for admission. He was seen by Dr. Jaye Peterson, admitted as described on admission history and physical examination. Additional pertinent history included hospitalization here 11/23/2016 to 11/24/2016 with uncontrolled diabetes type 1 with hyperglycemia as well as admission 11/25/2016 to 11/27/2016 with abdominal pain, uncontrolled diabetes, and impending diabetic ketoacidosis. In this setting, he has had refractory nausea and vomiting. He came to the emergency room on 12/31/2016 at which time, his sodium was 134, potassium 3.2, chloride 99, CO2 of 20, BUN 13, creatinine 1, glucose 255, calcium 9.5, total protein 8.9, albumin 4.2, globulin 4.7, lipase 44. CBC; white count 7.4, hemoglobin 14.9, platelets 250,000. On that ER visit, a CT scan of the abdomen and pelvis was done, which demonstrated no acute abdominal or pelvic pathology. He was discharged home. His symptoms persisted. The patient later reported that he had missed several doses of Lantus. ADDITIONAL HISTORY: Per Dr. Peterson. PHYSICAL EXAMINATION: Per Dr. Peterson. ADMISSION LABORATORY: Per Dr. Peterson. HOSPITAL COURSE: He was admitted by Dr. Peterson with diabetic ketoacidosis. Discharge Summary [place] [id number] [facility]. [address] NAME: ALPA VALIENTE JR : 95 STATUS : DIS IN PAT#: [id number] AGE: 21 ADM/REG DATE : 01/02/17 MR#: [id number] REPORT SERV DATE: 01/05/17 DICTATED BY: CONNOR FALK DATE: 01/04/17 REPORT STATUS : Draft TRANSCRIBED BY: KANIKA DATE: 01/04/17 He was admitted to [address] [place] [address]. He was initially kept n.p.o. He was given crystalloid volume resuscitation. He was placed on an insulin drip. He was seen by diabetes education on 01/03/2017 and the undersigned on 01/03/2017 and 01/04/2017. On 01/03/2017, his nausea and vomiting had improved. He was not coughing. He overall felt better. His diet was advanced. He was transitioned from an insulin drip to basal bolus correction insulin. On the morning of 01/04/2017, he felt well. His sodium is 137, potassium 3.7, chloride 99, CO2 of 24, BUN 5, creatinine 0.8, glucose 222 (at 0543 hours), calcium 8.5. At this point, it was felt he had achieved a level of improvement and stability and could be safely discharged home. He was asked to see his primary care physician, Dr. Rock in 48 to 72 hours for office followup and to be released back to work if his clinical condition allowed. He will continue his home diet and activity. He will use Lantus 40 units at bedtime. He has a meal regimen that he follows. He was given correction scale level 2 to use in addition to his home scale. Diabetes education and the undersigned discussed the potential benefits for transitioning to pump therapy. He will consider this and discuss with Dr. Rock. DICTATED BY: Connor Falk M.D. DD/KANIKA Connor Falk M.D. / [id number] CC: Antonia Taylor
[2017-01-02 10:41] LABS: BASOPHILS 0.1 %; BASOPHILS ABSOLUTE 0.01 10/3/uL (0.0-0.16); EOSINOPHILS 0 %; ER CBC TAT 0 Hrs 05 Mins; IMMATURE GRANULOCYTES 0.5 %; IMMATURE GRANULOCYTES ABSOLUTE 0.09 10/3/uL (0.0-0.11); LYMPHOCYTES ABSOLUTE 1.46 10/3/uL (0.67-4.30); MANUAL DIFF NO %; MEAN CORPUS HGB CONC 35.6 g/dL (32.0-36.0); MEAN CORPUSCULAR HEMOGLOB 29.1 pg (26.0-34.0); MEAN CORPUSCULAR VOLUME 81.8 fL (80-100); MEAN PLATELET VOLUME 10.3 fL (9.2-13.0); MONOCYTES 5.1 %; MONOCYTES ABSOLUTE 0.93 10/3/uL (0.21-1.20); NEUTROPHILS 86.3 %; NEUTROPHILS ABSOLUTE 15.79 10/3/uL (2.02-8.40); PLATELET COUNT 253 10/3/uL (150-400); WHITE BLOOD CELLS 18.3 10/3/uL (4.5-10.5)
[2017-01-02 10:56] LABS: A/G RATIO 0.9 (0.7-1.9); ALBUMIN 4.6 G/DL (3.5-5.0); ALKALINE PHOSPHATASE 100 U/L (45-117); BUN (BLOOD UREA NITROGEN) 21 MG/DL (6-23); CALCIUM, SERUM 9.8 MG/DL (8.5-10.4); CHLORIDE, SERUM 91 MMOL/L (96-112); CO2 (CARBON DIOXIDE) 18 MMOL/L (24-34); CREATININE 1.49 MG/DL (0.70-1.30); GFR AFRICAN AMERICAN 77 ML/MIN (>=60); GFR NON AFRICAN AMERICAN 66 ML/MIN (>=60); GLOBULIN 5.3 G/DL (2.5-4.1); GLUCOSE, SERUM 367 MG/DL (60-99); POTASSIUM, SERUM 3.6 MMOL/L (3.5-5.3); SGOT(AST) 14 U/L (5-40); SGPT(ALT) 28 U/L (5-65); SODIUM, SERUM 127 MMOL/L (135-148); TOTAL BILIRUBIN 0.7 MG/DL (0-1.2); TOTAL PROTEIN 9.9 G/DL (6.0-8.5)
[2017-01-02] MEDS ORDERED: HUMALOG SC (12:09)
[2017-01-02] MEDS ORDERED: LANTUS SC (12:10)
[2017-01-02 16:19] LABS: SALICYLATE 1.8 MG/DL (-)
[2017-01-02 16:20] LABS: ACETAMINOPHEN LEVEL (TYLENOL) < 2.0 MCG/ML (10.0-20.0); ALCOHOL < 10 MG/DL (0)
[2017-01-02 18:29] LABS: PARTIAL THROMBO TIME 28.1 SEC (22.5-37.2)
[2017-01-02 18:30] LABS: PROTIME (NOT ORD) 13.5 SEC (12.0-14.5)
[2017-01-02 18:46] LABS: CALCIUM, SERUM 8.9 MG/DL (8.5-10.4); CREATININE 1.19 MG/DL (0.70-1.30); FREE T4 1.02 NG/DL (0.76-1.46); GFR AFRICAN AMERICAN 101 ML/MIN (>=60); GFR NON AFRICAN AMERICAN 87 ML/MIN (>=60); POTASSIUM, SERUM 3.1 MMOL/L (3.5-5.3); TROPONIN I <0.02 NG/ML (<0.05); ULTRASENSITIVE TSH 0.518 MCIU/ML (0.358-3.740)
[2017-01-02 18:49] LABS: BUN (BLOOD UREA NITROGEN) 16 MG/DL (6-23); CHLORIDE, SERUM 102 MMOL/L (96-112); CO2 (CARBON DIOXIDE) 24 MMOL/L (24-34); GLUCOSE, SERUM 130 MG/DL (60-99); PHOSPHORUS, SERUM 0.9 MG/DL (2.5-4.5); SODIUM, SERUM 138 MMOL/L (135-148)
[2017-01-02 20:56] LABS: ACETONE SMALL
[2017-01-02 22:25] LABS: BUN (BLOOD UREA NITROGEN) 14 MG/DL (6-23); CALCIUM, SERUM 8.4 MG/DL (8.5-10.4); CHLORIDE, SERUM 104 MMOL/L (96-112); CO2 (CARBON DIOXIDE) 20 MMOL/L (24-34); CREATININE 1.01 MG/DL (0.70-1.30); GFR AFRICAN AMERICAN 123 ML/MIN (>=60); GFR NON AFRICAN AMERICAN 106 ML/MIN (>=60); GLUCOSE, SERUM 182 MG/DL (60-99); POTASSIUM, SERUM 3.3 MMOL/L (3.5-5.3); SODIUM, SERUM 138 MMOL/L (135-148)
[2017-01-02 22:45] LABS: ALLENS TEST Pos; BE (BASE EXCESS) -7.4 MEQ/L (0 +/- 2.5); CARBOXYHEMOGLOBIN 1.4 % (0-3); HCO3 (ACTUAL BICARBONATE) 16.8 MEQ/L (23-27); HEMOBLOGIN CONTENT 15.6 G/DL (14-18); INSTRUMENT SERIAL # 8087; METHEMOGLOBIN 0.5 % (0-3); PCO2 (CO2 TENSION) 31 MMHG (35-45); PO2 (O2 TENSION) 93 MMHG (79-93); SAMPLE Arterial; pH 7.35 (7.37-7.43)
[2017-01-03 05:48] LABS: BASOPHILS 0.1 %; BASOPHILS ABSOLUTE 0.01 10/3/uL (0.0-0.16); EOSINOPHILS 0.1 %; EOSINOPHILS ABSOLUTE 0.01 10/3/uL (0.0-0.53); HEMATOCRIT 39.9 % (40.0-51.0); HEMOGLOBIN 13.6 g/dL (13.6-17.8); IMMATURE GRANULOCYTES 0.1 %; IMMATURE GRANULOCYTES ABSOLUTE 0.01 10/3/uL (0.0-0.11); LYMPHOCYTES 17.8 %; LYMPHOCYTES ABSOLUTE 1.72 10/3/uL (0.67-4.30); MANUAL DIFF NO %; MEAN CORPUS HGB CONC 34.1 g/dL (32.0-36.0); MEAN CORPUSCULAR HEMOGLOB 28.3 pg (26.0-34.0); MEAN CORPUSCULAR VOLUME 83.1 fL (80-100); MEAN PLATELET VOLUME 10.1 fL (9.2-13.0); MONOCYTES 8.5 %; MONOCYTES ABSOLUTE 0.82 10/3/uL (0.21-1.20); NEUTROPHILS 73.4 %; NEUTROPHILS ABSOLUTE 7.09 10/3/uL (2.02-8.40); PLATELET COUNT 210 10/3/uL (150-400); RBC DISTRIBUTION WIDTH 12.8 % (12.0-16.0); WHITE BLOOD CELLS 9.7 10/3/uL (4.5-10.5)
[2017-01-03 06:00] LABS: BUN (BLOOD UREA NITROGEN) 12 MG/DL (6-23); CALCIUM, SERUM 8.3 MG/DL (8.5-10.4); CHLORIDE, SERUM 104 MMOL/L (96-112); CO2 (CARBON DIOXIDE) 21 MMOL/L (24-34); CREATININE 0.96 MG/DL (0.70-1.30); GFR AFRICAN AMERICAN 130 ML/MIN (>=60); GFR NON AFRICAN AMERICAN 113 ML/MIN (>=60); GLUCOSE, SERUM 156 MG/DL (60-99); POTASSIUM, SERUM 3.2 MMOL/L (3.5-5.3); SGOT(AST) 13 U/L (5-40); SGPT(ALT) 19 U/L (5-65); SODIUM, SERUM 134 MMOL/L (135-148); TOTAL BILIRUBIN 0.6 MG/DL (0-1.2)
[2017-01-03 06:01] LABS: A/G RATIO 0.8 (0.7-1.9); ALBUMIN 3.2 G/DL (3.5-5.0); ALKALINE PHOSPHATASE 73 U/L (45-117); GLOBULIN 4.1 G/DL (2.5-4.1); PHOSPHORUS, SERUM 1.8 MG/DL (2.5-4.5); TOTAL PROTEIN 7.3 G/DL (6.0-8.5)
[2017-01-03 07:30] LABS: ASCORBIC ACID (UR NOT ORDER) NEG (NEG); BILIRUBIN, URINE NEGATIVE (NEG); KETONE, URINE 80 MG/DL (NEG); LEUKOCYTE ESTERASE(NOT OR NEG (NEG); NITRITE (URINE) NEG (NEG); WBC (NOT ORDERED) (RFLEX) 1 (0-5)
[2017-01-03 07:32] LABS: ER URINALYSIS TAT 1 Hrs 19 Mins
[2017-01-03 10:35] LABS: BUN (BLOOD UREA NITROGEN) 10 MG/DL (6-23); CALCIUM, SERUM 8.5 MG/DL (8.5-10.4); CHLORIDE, SERUM 103 MMOL/L (96-112); CO2 (CARBON DIOXIDE) 23 MMOL/L (24-34); CREATININE 0.87 MG/DL (0.70-1.30); GFR AFRICAN AMERICAN 143 ML/MIN (>=60); GFR NON AFRICAN AMERICAN 123 ML/MIN (>=60); GLUCOSE, SERUM 161 MG/DL (60-99); PHOSPHORUS, SERUM 1.3 MG/DL (2.5-4.5); SODIUM, SERUM 136 MMOL/L (135-148)
[2017-01-03 13:19] LABS: GLYCOHEMOGLOBIN (HbA1c) 13.5 % (4.7-6.1)
[2017-01-03 18:15] LABS: BUN (BLOOD UREA NITROGEN) 7 MG/DL (6-23); CALCIUM, SERUM 8.5 MG/DL (8.5-10.4); CHLORIDE, SERUM 102 MMOL/L (96-112); CO2 (CARBON DIOXIDE) 25 MMOL/L (24-34); GFR AFRICAN AMERICAN 148 ML/MIN (>=60); GFR NON AFRICAN AMERICAN 128 ML/MIN (>=60); GLUCOSE, SERUM 165 MG/DL (60-99); PHOSPHORUS, SERUM 1.5 MG/DL (2.5-4.5); SODIUM, SERUM 136 MMOL/L (135-148)
[2017-01-03 22:20] LABS: BUN (BLOOD UREA NITROGEN) 6 MG/DL (6-23); CALCIUM, SERUM 8.4 MG/DL (8.5-10.4); CHLORIDE, SERUM 102 MMOL/L (96-112); CO2 (CARBON DIOXIDE) 25 MMOL/L (24-34); CREATININE 0.73 MG/DL (0.70-1.30); GFR AFRICAN AMERICAN 154 ML/MIN (>=60); GFR NON AFRICAN AMERICAN 133 ML/MIN (>=60); PHOSPHORUS, SERUM 1.6 MG/DL (2.5-4.5); SODIUM, SERUM 136 MMOL/L (135-148)
[2017-01-03 22:23] LABS: GLUCOSE, SERUM 118 MG/DL (60-99); POTASSIUM, SERUM 2.7 MMOL/L (3.5-5.3)
[2017-01-04 07:13] LABS: BUN (BLOOD UREA NITROGEN) 5 MG/DL (6-23); CALCIUM, SERUM 8.5 MG/DL (8.5-10.4); CHLORIDE, SERUM 99 MMOL/L (96-112); CO2 (CARBON DIOXIDE) 24 MMOL/L (24-34); GFR AFRICAN AMERICAN 148 ML/MIN (>=60); GFR NON AFRICAN AMERICAN 128 ML/MIN (>=60); PHOSPHORUS, SERUM 1.9 MG/DL (2.5-4.5); POTASSIUM, SERUM 3.7 MMOL/L (3.5-5.3); SODIUM, SERUM 130 MMOL/L (135-148)
[2017-01-04 07:20] LABS: GLUCOSE, SERUM 222 MG/DL (60-99)
[2017-01-04] MEDS ORDERED: HUMALOG (10:37)
[2017-03-13] MEDS ORDERED: LANTUSCART SC (17:29)
[2017-03-13] MEDS ORDERED: HUMALOGPEN SC (17:29)
[2017-03-13] MEDS ORDERED: ADVIL PO (17:31)
[2017-03-17] MEDS ORDERED: HUMALOG SC (08:42)
[2017-03-17] MEDS ORDERED: LANTUS SC (08:42)
[2017-03-19] MEDS ORDERED: HUMALOGPEN SQ (10:23)
== END 2017-01-04 12:06 | disposition home or self-care (01) | DRG 638 ==
LOC: ER 11:42 → 6NO 13:51
PROVIDERS: Internal Medicine; Nurse Practitioner Family
DX: E10.10 Type 1 diabetes mellitus with ketoacidosis without coma (principal); E87.1 Hypo-osmolality and hyponatremia; N17.9 Acute kidney failure, unspecified; Z91.14 Patient's other noncompliance with medication regimen; Z79.4 Long term (current) use of insulin; R11.2 Nausea with vomiting, unspecified
CPT/HCPCS: 36600; 71010; 74177; 80048; 80053; 80307; 81001; 82009; 82140; 82150; 82805; 82962; 83036; 83615; 83690; 83735; 84100; 84132; 84439; 84443; 84484; 85025; 85610; 85730; 87040; 93005; 96374; 96375; 99284; 99285; A9270-GY; C9113; J1170; J2405; Q9967